=== PATIENT | male | born 1980 | race Caucasian/White ===

== ENCOUNTER 2021-01-07 13:39 | Emergency (ER) | payer BC ==
[~2021-01-07] VITALS: Ht 170.2 cm; Wt 113.4 kg
[2021-01-07 15:31] LABS: HEMOGLOBIN 14.9 gm/dl (14.0-17.5); RED BLOOD COUNT 5.19 M/UL (4.20-5.50); WHITE BLOOD COUNT 8.6 K/UL (4.5-11.0)
[2021-01-07 15:57] LABS: BUN/CREATININE RATIO 14 (0-10)
== END 2021-01-07 17:30 | disposition home or self-care (01) ==
LOC: ER1 13:39
DX: Z23 Encounter for immunization (principal); U07.1 COVID-19
CPT/HCPCS: 71045; 80053; 85025; 99283; M0243